=== PATIENT | male | born 1955 | race Caucasian/White ===

== ENCOUNTER 2017-07-27 09:07 | Day surgery (SDC) | payer BC ==
--- NOTE | 2017-07-12 19:21 | HP ---
CC: Amado Rojo MD * ADMISSION HISTORY AND PHYSICAL: DATE OF ADMISSION: 07/27/17 ATTENDING SURGEON: Chris Beltran MD * (BETH Pal, dictating). CHIEF COMPLAINT: Umbilical ventral hernia. HISTORY OF PRESENT ILLNESS: This is a 61-year-old morbidly obese hypertensive diabetic male with presence of an umbilical hernia since childhood. He states that it had gradually increased in size to its present state, though has been minimally symptomatic if at all, over the years. He was referred for surgical evaluation and seen by Dr. Beltran on 06/23/17. Exam at that time confirmed the presence of a large nonreducible, nontender umbilical ventral hernia. Options were discussed with the patient including the option of no surgery. He understands the indications risks, benefits, and alternatives and the proposed method of repair. He would like to proceed as scheduled with laparoscopic repair of ventral umbilical hernia with mesh. PAST MEDICAL HISTORY: Significant for; 1. Morbid obesity. 2. Type 2 diabetes. 3. Hyperlipidemia. 4. Hypertension. 5. Stage 2 chronic kidney disease. 6. Past history of lower extremity edema with ulcers (healed; no current problems with edema). PAST SURGICAL HISTORY: Previous surgeries include appendectomy as a child. CURRENT MEDICATIONS: 1. Levemir 76 units subcutaneously q.a.m., 80 units subcutaneously q.p.m. 2. Victoza 1.3 mg subcu once daily. 3. Jardiance 25 mg once daily. 4. Pravastatin 20 mg once daily. 5. Metoprolol 100 mg b.i.d. 6. Lisinopril-hydrochlorothiazide 20-25 two tablets q.a.m. 7. Metformin 1000 mg b.i.d. 8. Clonidine 0.2 mg daily. 9. Cartia XT 240 mg daily (the patient is also recommended to take aspirin 81 mg once daily, but he is not currently doing so). DRUG ALLERGIES: CATAPRES (rash from name brand drug only, no problem with generic clonidine). FAMILY HISTORY: Negative for anesthesia problems, bleeding or clotting disorders. SOCIAL HISTORY: The patient lives with his and son. He is a research project manager. He denies use of tobacco, alcohol or recreational drugs. REVIEW OF SYSTEMS: General: No recent constitutional symptoms or acute illnesses. Weight has been stable. He was advised by Dr. Beltran to undergo medically supervised weight loss prior to surgery, but he declined. Cardiovascular: No history of chest pain, palpitations, NM or angina. He is treated for hypertension. Respiratory: No history of asthma, chronic cough, or shortness of breath. GI: No upper GI symptoms. No lower GI symptoms. Colonoscopy done in November 2015 which he states was a normal study. : No problems reported (renal function test to indicate gradual deterioration with most recent estimated GFR of 60). Endocrine: He is treated for type 2 diabetes with most recent A1c in his chart of 8.8. No thyroid dysfunction. PHYSICAL EXAMINATION GENERAL: Well-nourished, morbidly obese -[place] male, in no acute distress. VITAL SIGNS: Height 6 feet 3 inches, weight 318 pounds, BMI 39.7. HEENT: Pupils are equal, round, and reactive. EOMs intact. No conjunctival pallor. Oropharynx: Teeth in good repair. No intraoral lesions. NECK: No lymphadenopathy, thyromegaly, or masses. LUNGS: Clear to auscultation. No rales or wheezes. HEART: Regular rate and rhythm. No murmur appreciated. The heart tones are distant. ABDOMEN: Obese. There is a visible bulge at the umbilicus. This is partially reducible, soft and nontender with size estimated at 10 x 8 cm. There is well- healed right lower quadrant incision from prior appendectomy. The remainder of the abdomen is soft and nontender without palpable masses or organomegaly, though exam is limited by body habitus. GENITALIA: Recent exam by Dr. Beltran did not demonstrate any inguinal hernias. RECTAL: Not done. BACK: No spinous process or CVA tenderness. EXTREMITIES: No edema. No open areas. NEUROLOGIC: Grossly intact. SKIN: Warm and dry. No suspicious rashes or lesions noted. IMPRESSION: Umbilical ventral hernia. PLAN: Laparoscopic repair of umbilical ventral hernia with mesh. BETH PAL [id number] #: [id number] MTDD
[~2017-07-27 09:07] MED LIST: Aspirin EC Low Dose* 81 MG TAB.EC PO ONE; Aspirin Low Dose CHEW TAB* 81 MG ONE; Buffered Lidocaine 0.9% SYRIN* 5 ML/SYR SYRINGE INTRADERM ONE; Buffered Lidocaine 0.9% SYRIN* 5 ML/SYR SYRINGE ONE; DiMENhydriNATE IV* 50 MG/ML VIAL IV PUSH PRN; Famotidine IV* 10 MG/ML 2 ML (20 mg) IV ONE; Famotidine IV* 10 MG/ML 2 ML (20 mg) ONE; Metoclopramide IV* 5 MG/ML 2 ML VIAL IV SLOW PU ONE; Metoclopramide IV* 5 MG/ML 2 ML VIAL ONE; Morphine INJ* 2 MG/ML 1 ML CARPUJECT IV PRN; Naloxone* 0.4 MG/ML 1 ML VIAL IV PRN; PROCHLORPERAZINE INJ 5 MG/ML 2 ML VIAL IV PRN; Scopolamine 1.5 mg* PATCH TRANSDERM PRN; fentaNYL* 50 MCG/ML 2 ML VIAL (100 MCG VIAL) IV PRN
[2017-07-27] MEDS ORDERED: Midazolam* 1 MG/ML 5 ML VIAL (5 MG) ONE (09:11)
[2017-07-27] MEDS ORDERED: Atracurium* 10 MG/ML 10 ML VIAL ONE (09:11)
[2017-07-27] MEDS ORDERED: fentaNYL* 50 MCG/ML 5 ML VIAL (250 MCG VIAL) ONE (09:11)
[2017-07-27] MEDS ORDERED: ceFAZolin 1 GM in Dextrose (*) 1 GM/50 ML BAG IVPB ONE (09:51)
[2017-07-27] MEDS ORDERED: ceFAZolin 2 GM in 100 MLS NS (*) BAG IVPB ONE (10:11)
[2017-07-27] MEDS ORDERED: Bupivacaine 0.25% SDV* 30 ML ONE (10:28)
[2017-07-27] MEDS ORDERED: Bupivacaine 0.5% SDV PF* 10-30ML VIAL ONE (10:28)
[2017-07-27] MEDS ORDERED: Metoprolol Tartrate IV* 1 MG/ML 5 ML VIAL ONE (11:02)
[2017-07-27] MEDS ORDERED: Ondansetron INJ* 2 MG/ML VIAL ONE (11:21)
[2017-07-27] MEDS ORDERED: Lidocaine 2% PF * 5 ML VIAL ONE (11:21)
[2017-07-27] MEDS ORDERED: Propofol* 10 MG/ML 20 ML BTL IV PUSH ONE (11:21)
[2017-07-27] MEDS ORDERED: Succinylcholine* 20 MG/ML 10 ML VIAL ONE (11:21)
[2017-07-27] MEDS ORDERED: Phenylephrine INJ* 10 MG/ML 1 ML VIAL (10 MG) ONE (11:21)
[2017-07-27] MEDS ORDERED: PROCHLORPERAZINE INJ 5 MG/ML 2 ML VIAL ONE (11:21)
[2017-07-27] MEDS ORDERED: Glycopyrrolate IV* 0.2 MG/ML 1 ML VIAL ONE (11:21)
[2017-07-27] MEDS ORDERED: Labetalol IV* 5 MG/ML 20 ML VIAL ONE (12:23)
[2017-07-27] MEDS ORDERED: Flumazenil* 0.1 MG/ML 5 ML MDV ONE (12:23)
[2017-07-27] MEDS ORDERED: oxyCODONE/Acetamin 5/325 MG* TAB PO PRN (12:48)
--- NOTE | 2017-07-27 12:55 | OP ---
Operative Report - Blank - Operative Report Date of Operation: 07/27/17 Note: Pre-op: Ventral hernia Post-op: Same Procedure: Laparoscopic ventral hernia repair Surgeon: Dr. Beltran Senior Quality Analyst: BETH Villafana Anesthesia: [facility] Fluids: IV 1,500 cc Catheter: None Drains: None EBL: Minimal Specimen: None Findings: See dictated op note
[2017-07-27 14:22] VITALS: BP 152/85
[2017-07-27] MEDS ORDERED: fentaNYL* 50 MCG/ML 2 ML VIAL (100 MCG VIAL) ONE (14:29)
--- NOTE | 2017-07-28 14:42 | OP ---
CC: Dr. Amado Rojo * DATE OF OPERATION: 07/27/17 - SDS DATE OF : 57 SURGEON: Chris Beltran MD CURRICULUM SUPERVISOR: BETH Chu ANESTHESIOLOGIST: Dr. Gomez. ANESTHESIA: General anesthesia. PRE-OP DIAGNOSIS: Ventral hernia. POST-OP DIAGNOSIS: Ventral hernia. OPERATIVE PROCEDURE: Laparoscopic ventral hernia repair with mesh. ESTIMATED BLOOD LOSS: Minimal blood loss. FLUIDS: 1500 cc of crystalloid fluid given. SPECIMEN: None. DRAINS: None. DESCRIPTION OF PROCEDURE: The patient was identified in the preoperative area. Consent was signed. Patient was marked and brought to the operating room and placed on the operating table in supine position. Preoperative antibiotics were given. Sequential devices were placed on bilateral lower extremities. General anesthesia was induced. Before the patient's abdomen was prepped, we did try to reduce the hernia. This was not feasible. The abdomen was then prepped and draped in standard surgical fashion. A time-out was performed. A subcostal incision was made at the Mi's point on the left upper quadrant. This was deepened down to the anterior fascia, which was elevated and a Veress needle inserted. The abdomen was then allowed to insufflate to a pressure of 15 mmHg. Veress needle was removed and a 12-mm trocar was inserted to this. The laparoscope was inserted and there was no evidence of injury from the trocar or the Veress. Review of the abdomen showed larger omentum extending into the umbilical hernia and also with anterior abdominal adhesions. Additional trocars were then placed in the following position: A 5-mm in the left lower quadrant, a 5-mm in the left lateral and a camera was repositioned to the 5-mm in the left lateral and we then approached the anterior abdominal wall adhesions. Omentum was taken down with both blunt and sharp dissection until we were only looking at the hernia site. The attachments to the edges of the hernia were taken down with sharp dissection and then we bluntly reduced the hernia contents, which consisted of significant amount of omentum. Once this was reduced, we did look at the omentum and we saw mild oozing, but no significant bleeding. We then returned our attention to the defect. This appeared approximately 3 cm. I did take the sac of the superior aspect of the hernia and sharply lysed this and removed it in pieces. We did not take the full sac. Next, using a 0 Prolene suture, we placed 2 stitches of simple Prolene sutures to reapproximate the defect again which was approximately 3 cm in linear fashion. Next, an 8-cm ventral mesh Echo PS system was then opened up. This was rolled up and placed into the abdominal cavity through the 12-mm trocar. We then unfurled it and through an incision right to the mid portion of the hernia, picked up the provided suture, tubing and then insufflated the Echo system. It was a round patch and laid appropriately over the hernia defect with good coverage. Then using a Securestrap, we tacked around the parameter every 1 cm. An additional 5-mm trocar was placed in the right lateral abdomen to get better purchase on the left-sided tack. There was no bleeding. I reviewed the omentum showed that it was intact. The defect was slowly covered. We then allowed the abdomen to collapse. Trocars were removed under direct vision. The anterior fascia at the 12-mm port was reapproximated with a [id number] 0 Polysorb suture. The wound was irrigated and all additional incisions were reapproximated with 4-0 Monocryl subcuticular sutures. It should be noted the Echo PS system bladder was also separately removed from the abdomen and accounted for. Patient was woken up in the OR and transferred to the PACU in stable condition. [id number]/[id number] #: [id number] TONI
[2017-07-30] MEDS ORDERED: Scopolamine PATCH Remove* 1 NOTE MISC PATCH OFF ONE (05:55)
== END 2017-07-27 14:53 | disposition home or self-care (01) ==
LOC: OR 09:07
PROVIDERS: ATTEND Surgery
DX: K43.9 Ventral hernia without obstruction or gangrene (principal); Z79.84 Long term (current) use of oral hypoglycemic drugs; E66.2 Morbid (severe) obesity with alveolar hypoventilation; E78.5 Hyperlipidemia, unspecified; I10 Essential (primary) hypertension; N18.2 Chronic kidney disease, stage 2 (mild); I12.9 Hypertensive chronic kidney disease with stage 1 through stage 4 chronic kidney disease, or unspecified chronic kidney disease
CPT/HCPCS: A9270-GY; C1776; C1781; J0330; J0690; J0780; J2250; J2405; J2704; J2765; J3010; J3490